=== PATIENT | female | born 1995 | race African-American/Black ===

== ENCOUNTER 2023-04-04 20:53 | Emergency (ER) | payer SELFPAY ==
--- NOTE | ~2023-04-04 | CT_ITS ---
EXAMINATION: CT abdomen pelvis w con DATE: 04/05/2023 02:27 INDICATION: Periumbilical and epigastric abdominal pain. TECHNIQUE: Computed tomography (CT) of the abdomen and pelvis was performed with 100 mL Omnipaque 350 intravenous contrast. Automated exposure control and iterative reconstruction technique were employe d. The dose-length product was 1495.90 mGy-cm. COMPARISON: None. FINDINGS: The visualized portions of the lung bases are clear without pneumonia or pleural effusion. The heart size is normal. No pericardial effusion. The liver is normal. There are gallstones in the g allbladder, which is normal in size. The spleen, pancreas, adrenal glands, and kidneys are normal. Th ere is an umbilical hernia containing fat. The appendix is normal. There are no dilated loops of brina l. There are no pathologically enlarged lymph nodes. There is no free intraperitoneal fluid. There ar e small foci of gas in the subcutaneous fat in left flank. There is mild lumbar spondylosis. IMPRESSION: 1. Umbilical hernia containing fat. 2. Small foci of gas in the subcutaneous fat in left flank of uncertain clinical significance. Correl ate with physical exam for evidence of cellulitis. 3. Cholelithiasis. Reviewed, dictated and finalized at location E. IMPRESSION: 1. Umbilical hernia containing fat. 2. Small foci of gas in the subcutaneous fat in left flank of uncertain clinica l significance. Correlate with physical exam for evidence of cellulitis. 3. Cholelithiasis.
[2023-04-04 21:16] VITALS: BP 107/89; PULSE 79; RESP 18; TEMP 36.1; O2SAT 100
[2023-04-05 00:03] VITALS: BP 124/84; PULSE 79; RESP 18; O2SAT 100
--- NOTE | 2023-04-05 01:13 | ED.ABDPAIN ---
HPI - Abdominal Pain General Chief Complaint: Abdominal Pain Stated Complaint: abdominal pain, vomiting Time Seen by Provider: 04/05/23 01:05 History of Present Illness HPI narrative: 28-year-old female reports for evaluation for abdominal pain that started 6 hours prior to arrival. Patient states she was getting off work, and felt a pain in her epigastrium and periumbilical region. Stated the same time, she started developing pain in her low back which gradually got worse. She states the pain escalated to a 10 out of 10 pain and caused her to have 1 episode of emesis. She states the pain was severe for about an hour and then subsided when she got to the emergency department. She is now reporting the pain as a 4 out of 10. She reports 1 episode of nonbloody diarrhea. She has never had pain like this before. Only abdominal surgeries consist of a section 14 months ago. LMP approximately 5 weeks ago. She denies fever, chest pain or shortness of breath, nausea, obstipation, dysuria or hematuria, vaginal bleeding, concern for STDs, vaginal discharge. Review of Systems Review of Systems: CONSTITUTIONAL: Denies fever, chills EYES: Denies visual changes, redness, or discharge. ENT: Denies rhinorrhea, congestion, sore throat, or otalgia. CARDIOVASCULAR: Denies chest pain, palpitations, or edema. RESPIRATORY: Denies cough or dyspnea. GASTROINTESTINAL: See HPI GENITOURINARY: Denies dysuria or hematuria. SKIN: Denies rash or itching. MUSCULOSKELETAL: See HPI NEUROLOGIC: Denies headache, numbness, dizziness, or weakness. PSYCHIATRIC: Denies anxiety or depression. Exam Narrative: GENERAL: Well-appearing, in no acute distress. Patient resting comfortably in exam bed. She is pleasant and conversational. HEAD: Normocephalic EYES: PERRLA ENT: Nares clear. Mucous membranes moist. Oropharynx without tonsillar hypertrophy exudate or other lesions. NECK: Supple. CHEST: No respiratory distress. Clear to auscultation, no adventitious breath sounds. HEART: Regular rate and rhythm. No murmur heard. Normal peripheral pulses. ABDOMEN: Normal active bowel sounds. Abdomen soft with tenderness in the periumbilical region with guarding. Negative Swain's. No overlying skin changes. No CVA tenderness. Negative heeltap. EXTREMITIES: Normal range of motion. No edema. SKIN: Warm, dry, no rash. NEURO: No focal deficits. Alert and oriented x3. PSYCH: Normal mood and affect. Course Vital Signs Vital signs: Vital Signs Temperature 96.9 F L 04/04/23 21:16 Pulse Rate 79 04/04/23 21:16 Respiratory Rate 18 04/04/23 21:16 Blood Pressure 107/89 04/04/23 21:16 Pulse Oximetry 100 04/04/23 21:16 Oxygen Delivery Room Air 04/04/23 21:16 Temperature 96.9 F L 04/04/23 21:16 Pulse Rate 72 04/05/23 01:38 Respiratory Rate 15 04/05/23 01:38 Blood Pressure 108/68 04/05/23 01:38 Pulse Oximetry 100 04/05/23 01:38 Oxygen Delivery Room Air 04/04/23 21:16 MDM - Abdominal Pain MDM Narrative Medical decision making narrative: 28-year-old female reports for evaluation for abdominal pain and back pain x7 hours. See HPI for further history. Vitals are stable, she is afebrile. She is nontoxic and well-appearing on exam. Abdomen is soft with tenderness in the periumbilical region with guarding. No peritoneal signs. CBC significant for no leukocytosis. Hemoglobin 11.4, no prior for comparison. Chemistries largely unremarkable other than AST of 85 and ALT of 50. Bilirubin and alk phos normal. Normal lipase. Urinalysis unremarkable. UPT negative. CT abdomen pelvis shows an umbilical hernia containing fat, small focal site of gas in the subcutaneous fat in the left flank of uncertain clinical significance and cholelithiasis. Upon reevaluation, patient sleeping. She states her pain is significantly improved without any intervention. Labs and imaging discussed with her. There are no overlying skin changes over
[2023-04-05 01:38] VITALS: BP 108/68; PULSE 72; RESP 15; O2SAT 100
[2023-04-05] MEDS: SODIUM CHLORIDE 0.9% IV 1,000 ML 999 ML IV CONT (01:38)
[2023-04-05 01:43] LABS: Appearance Urine Clear (Clear); Basophils Percent Auto 0.3 % (0.2-1.2); Bilirubin Urine Negative (Negative); Blood Urine Negative (Negative); Color Urine Yellow (Yellow); Eosinophils Absolute Auto 0.1 K/mm3 (0-0.3); Eosinophils Percent Auto 0.8 % (0-4.4); Glucose Urine UA Negative (Negative); Hematocrit 34.8 % (37.0-47.0); Hemoglobin 11.4 g/dL (12.0-15.0); Immature Granulocyte Absolute 0.03 K/mm3 (0.00-0.031); Immature Granulocyte Percent A 0.3 % (0-0.5); Ketones Urine Negative (Negative); Leukocyte Esterase Ur Negative LEU/UL (Negative); Lymphocytes Absolute Auto 2.85 K/mm3 (0.9-3.2); Lymphocytes Percent Auto 31.9 % (18.3-44.2); Mean Corpuscular HGB Conc 32.8 g/dl (32-36); Mean Corpuscular Hemoglobin 30.2 pg (26-34); Mean Corpuscular Volume 92.1 fl (80-100); Mean Platelet Volume 9.9 fl (7.4-10.4); Monocytes Absolute Auto 0.5 K/mm3 (0.1-0.6); Monocytes Percent Auto 5.9 % (2.6-8.5); Neutrophils Absolute Auto 5.4 K/mm3 (1.3-6.7); Neutrophils Percent Auto 60.8 % (45.5-73.1); Nitrate Urine Negative (Negative); Platelet Count Result 151 k/mm3 (150-375); Protein Urine Negative (Negative); Red Blood Count 3.78 M/mm3 (4.2-5.4); Red Cell Distribution Width 12.7 % (11.5-14.5); Specific Grav Ur 1.017 (1.001-1.035); Urobilinogen Urine 0.2 mg/dL (<2.0); White Blood Count 8.9 K/mm3 (4.5-10.0)
[2023-04-05 01:53] LABS: Alanine Aminotransferase 50 U/L (6-35); Albumin Level 4.1 g/dL (3.5-5.1); Alkaline Phosphatase 76 U/L (38-126); Anion Gap 6 mmol/L (8-16); Aspartate Amino Transferase 85 U/L (14-36); Bilirubin,Total 0.3 mg/dL (0.2-1.3); Blood Urea Nitrogen 10 mg/dL (7-17); Carbon Dioxide 29 mmol/L (22-30); Chloride 102 mmol/L (98-107); Estimated Glomerular Filt Rate > 60; Glucose 135 mg/dL (65-110); Lipase 253 U/L (23-300); Potassium 3.9 mmol/L (3.4-5.0); Sodium 137 mmol/L (137-145)
[2023-04-05 01:58] LABS: Add Urine Microscopic? NO
[2023-04-05 02:01] LABS: Pregnancy On Board Control Positive; Urine Pregnancy Test Negative
[2023-04-05 04:02] VITALS: BP 116/64; PULSE 74; RESP 15; O2SAT 100
== END 2023-04-05 04:03 | disposition home or self-care (01) ==
PROVIDERS: Emergency Provider Physician Assistant
DX: R10.33 Periumbilical pain (principal); K42.9 Umbilical hernia without obstruction or gangrene; K80.20 Calculus of gallbladder without cholecystitis without obstruction
CPT/HCPCS: 36415; 74177; 80053; 81003; 81025; 83690; 85025; 96360; 99284; J7030; Q9967

== ENCOUNTER 2025-04-26 15:40 | Emergency (ER) | payer OTHER, SELFPAY ==
--- NOTE | 2025-04-26 15:42 | ED_ITS ---
HPI - URI/Sore Throat General Chief Complaint: Upper Respiratory Infection Stated Complaint: Sore throat / Cough Time Seen by Provider: 04/26/25 16:11 Source: patient, RN notes reviewed and old records reviewed Mode of arrival: ambulatory Limitations: no limitations History of Present Illness HPI Narrative: 30-year-old female presents to the [facility] with a sore throat, cough and fell fever since yesterday. Has taken Tylenol. Currently Related Data Allergies Allergy/AdvReac Type Severity Reaction Status Date / Time No Known Allergies Allergy Verified 04/26/25 15:58 Review of Systems Review of Systems: All systems reviewed & are unremarkable except as noted in HPI and below Constitutional: Constitutional: Reports as per HPI, Reports body ache(s), Reports fatigue and Reports fever(s) ENT: Reports as per HPI Cardiovascular: Cardiovascular: Reports no additional cardiovascular complaints, Denies chest pain and Denies dyspnea Respiratory: Respiratory: Reports as per HPI, Denies chest congestion, Reports cough and Denies dyspnea Musculoskeletal: Musculoskeletal: Reports no additional musculoskeletal complaints Integumentary/Breasts: Skin/Breast: Reports system reviewed and no additional complaints, except as docu PMFSH Comments At the time of my signature, I reviewed and agree with the nursing past medical, surgical, social, and family history. There is no relevant family history pertinent to the patient complaint. Exam Const: General: cooperative, healthy appearing, comfortable, no acute distress, well developed, alert and well nourished Nutritional Appearance: well nourished and obese Orientation/consciousness: patient oriented x3 Limitations: no limitations HENMT: Head: normal to inspection Ears: hearing grossly normal bilaterally, external ears normal, TM's normal bilaterally, EAC's normal, mastoids normal and no periauricular adenopathy Mouth: Yes Normal oral and palatal mucosa present, Yes lip normal, Yes tongue normal and Yes moist mucous membranes Throat: uvula midline, abnormal tonsil bilateral erythema and hypertrophy 2+; no exudates and posterior oropharynx abnormal erythema; no exudates Eyes: General: appearance normal, both eyes and all related structures Alignment and Position: alignment normal Neck: Neck: normal visual inspection, full ROM, no lymphadenopathy and no meningeal signs Chest: Chest palpation & inspection: normal inspection of the chest Resp: Effort & Inspection: normal respiratory effort and able to speak in complete sentences Auscultation: clear to auscultation bilaterally, no crackles, no rales, no rhonchi and no wheezes Cardio: Rate: regular rate Skin: General skin exam: normal color and no rashes or lesions noted Neuro: General: patient oriented x3, gait normal, moves all extremities and no meningeal signs Cognition (Neuro): normal cognition Speech: normal speech Gait exam (Neuro): Normal gait present Extrem: General: normal to inspection, full ROM, capillary refill normal and normal gait Psych: Appearance: grossly normal and well kempt Mental Status: mental status grossly normal Speech and movement: Normal speech and movement present and Clear speech present Affect: normal affect Attitude: cooperative Course Course Level of Care: Express Care Visit Vital Signs Vital signs: Vital Signs Temperature 97.2 F L 04/26/25 16:07 Pulse Rate 78 04/26/25 16:07 Respiratory Rate 18 04/26/25 16:07 Blood Pressure 120/53 L 04/26/25 16:07 Pulse Oximetry 100 04/26/25 16:07 Oxygen Delivery Room Air 04/26/25 16:07 Temperature 97.2 F L 04/26/25 16:07 Pulse Rate 78 04/26/25 16:07 Respiratory Rate 18 04/26/25 16:07 Blood Pressure 120/53 L 04/26/25 16:07 Pulse Oximetry 100 04/26/25 16:07 Oxygen Delivery Room Air 04/26/25 16:07 Reviewed MDM - URI/Sore Throat MDM Narrative Medical decision making narrative: Patient sitting comfortably in exam room. Patient is nontoxic, vitals stable. Patient presents with sore throat, cough and feeling feverish since yesterday. Flu COVID is negative Strep test is positive Patient appropriate for outpatient treatment with close follow-up with amoxicillin Discharge instructions reviewed with patient, as well as provided in writing per nursing staff. The instructions also include specific and strict return/GO TO THE ER as well as f/u information. All questions have been answered, and the patient deny any further questions with discharge and discharge plan. Some parts of this dictation were generated by voice recognition software and may contain typographical and/or grammatical inaccuracies. Differential Diagnosis Differential diagnosis: Likely upper respiratory infection, otitis media, sinusitis, viral infection, bronchitis, influenza and pharyngitis Lab Data Labs: Lab Results 04/26/25 04/26/25 Range/Units 16:22 16:34 POC Influenza A Ag Negative (Negative) POC Influenza B Ag Negative (Negative) POC SARS CoV-2 Ag Negative (Negative) POC Grp A Strep Screen Positive (Negative) Reviewed Critical Care Time Critical Care Time Critical Care Time: No Discharge Plan Discharge Clinical Impression: Strep throat Patient Disposition: Home Condition: Stable Instructions: Antibiotic Form, Strep Throat (ED) Additional Instructions: After 24-48 hours on antibiotics, Throw the toothbrush away, start using a new one. Please be sure to wash bed linens especially pillow cases. Repeat once you finish the antibiotics. Do not share drinks. Take Motrin alternating with Tylenol for pain and fever alternating every 4 hours. Increase fluids, avoid caffeine. Give plenty of water, juice, Gatorade, Pedialyte, ice pops in Jell-O Follow up with Primary provider if not getting better this week For new or worsening symptoms go directly to the emergency room Patient Language: Irish Prescriptions: New amoxicillin 875 mg tablet 875 mg PO Q12H Qty: 20 0RF Follow-up/Referrals: UNKNOWN,DOCTOR [Non-Staff] Time of Disposition: 16:41
[2025-04-26 16:07] VITALS: BP 120/53; PULSE 78; RESP 18; TEMP 36.2; O2SAT 100
[2025-04-26 16:23] LABS: EDSTREPNEGPOS1 Positive (Negative)
--- OUTSIDE RECORDS SUMMARY | 2025-04-26 16:26 | XMS_ITS | Clinical Summary ---
Author Organization [facility] at the [facility] Office Building Address [address] [place] [address] Care Team Providers Care Telephone Technician Name Role Phone No, Physician Primary Care Provider [phone] Allergies Active Allergy Reactions Criticality Noted Date Comments Quinine Itching Low 09/22/2024 Medications [id number] 25 mg iron-1 mg -400 mg combo pack Take by mouth Active ibuprofen (ADVIL,MOTRIN) 600 mg tablet Take 1 tablet (600 mg total) by mouth every 6 (six) hours as needed for pain 60 tablet 10/22/2024 Active Active Problems Problem Noted Date Diagnosed Date Class 3 severe obesity due t o excess calories with body mass index (BMI) of 45.0 to 49.9 in adult 12/01/2024 History of section 09/25/2024 Metabolic syndrome X 03/25/2023 Resolved Problems Problem Noted Date Diagnosed Date Resolved Date care following delivery 10/20/2024 12/01/2024 Overview (10/22/2024): 10/20/24, POD #1 (CZ) S/p uncomplicated rLTCS. EBL 450 cc, Hgb 10.7 O+, Rubella immune Vital signs reviewed- wnl Mom and baby doing well Normal exam Bandage c/d/i Ambulating, tolerating PO, not yet voiding (due by 1430) , lochia moderate, pain controlled MOF: MOC: For further discussion. Mood: stable VTE ppx: The patient has the following MAJOR risk factors BMI >/= 40 and the following MINOR risk factors delivery. enoxaparin 40 mg BID ordered for VTE prophylaxis. Dispo: Continue routine postoperative care. 10/21/2024 POD #2 (CZ) EBL 450 cc, Hgb 10.7 > 9.3 O+, Rubella immune Vital signs reviewed- wnl Mom and baby doing well Normal exam Bandage c/d/i Ambulating, tolerating PO, voiding spontaneously , lochia moderate, pain controlled MOF: MOC: For further discussion. Mood: stable VTE ppx: The patient has the following MAJOR risk factors BMI >/= 40 and the following MINOR risk factors delivery. enoxaparin 40 mg BID ordered for VTE prophylaxis. Dispo: patient would like to discharge home tomorrow to be able to move around a little better. Continue routine postoperative care. 10/22/24, POD#3 (JF) S/p uncomplicated rLTCS EBL 450 cc, Hgb 10.7 > 9.3 O+, Rubella immune Vital signs reviewed and normal Ambulating, tolerating PO, voiding spontaneously, lochia moderate, pain controlled MOF: MOC: VTE ppx: The patient has the following MAJOR risk factors BMI >/= 40 and the following MINOR risk factors delivery. enoxaparin 40 mg BID ordered for VTE prophylaxis. Mood: stable Dispo: Discharge today. discharge education provided: reviewed s/s of infection, VTE/DVT, bleeding, pre eclampsia and depression/anxiety. Follow up in 1 wk for post op incision check and 6 wk visit History of delivery 10/07/2024 12/01/2024 Overview (10/22/2024): 10/19/2024, 0720 ([place]ell) Patient with history of one prior LTCS, did not labor, told pelvis too small Has been counseled on TOLAC and she would be open to that if she had labored herself, but she declines IOL again today Counseled on risks of the procedure Repeat CS, being bleeding, infection, damage to surrounding structures, need for additional procedures, need for blood transfusion. O (+) blood type, Hgb 10.7, consents to blood products if needed Reviewed need for 3 grams of ancef given current BMI/weight Gestational thrombocytopenia: plt 147 this AM Planning spinal for anesthesia 40 weeks gestation of 10/07/2024 12/01/2024 Supervision of other normal , antepartum 09/25/2024 12/01/2024 Overview (10/19/2024): Surveillance of EDC by 1st T US O+/I/-/-/HIV RPR NR Genetics: NIPT LR Anatomy w/ MFM: incomplete, AGA (35%), echogenic focus in liver; (06/30) incomplete left hand, persistent echogenic focus in liver S/p counseling with MFM and declined amnio GTT: passed 3 hr 3T labs - see anemia below, HIV/RPR NR Tdap: 08/03 Flu (05/05) GBS: negative Social Barriers: none Mode of feeding: breast Method of contraception: declines at this time Delivery Planning: Scheduled for rLTCS 10/[address] Hung. Pain management: desires epidural Support: Class III Obesity (BMI 47.6): early glucose wnl Weekly testing (08/19) 58%, (09/16) EFW 56% 3T anesthesia consult completed 08/26 Hx C/S x1: did not get to labor - was told by provider in [place] that pelvis was too small. Counseled 08/03. Desires TOLAC. Anemia: Hgb 9.4 > 9.8 > 10.5, continue PO iron Gestational Thrombocytopenia: Plt 145 > 143 > 151 [facility] 20 weeks of gestation 09/22/2024 09/25/2024 Overview (09/22/2024): 09/22/2024 0900 (CZ) 29 yo @ 36w1d who presents to [facility] with painful contractions. Her is complicated by morbid obesity and hx of x1. She desires TOLAC. O+, Rubella Immune Hgb: 10.5 GBS: Collected and in progress. SVE 0.5/25/-3 Patient kept for observation due to late decelerations on monitoring. NST currently reactive BPP performed and 02/25 with LIBRADO stable at 6.9 Plan to discharge patient home with strict return precautions, including contractions, vaginal bleeding, LOF, and decreased movement. Also reviewed Pre-eclampsia warning signs. Next OB and ultrasound in office 09/24 Anemia affecting in third trimester 09/09/1912/01/2024 Severe obesity due to excess calories affecting , antepartum 05/05/2024 12/02/19 25 Immunizations Immunization Administration Dates Next Due Tdap 08/03/2024 Surgical History Surgery Date Site/Laterality Comments SECTION Medical History Medical History Date Comments Polycystic ovary syndrome Family History Medical History Relation Name Comments Diabetes Mother Breast cancer Neg Hx Colon cancer Neg Hx Depression Neg Hx Heart disease Neg Hx Kidney disease Neg Hx Ovarian cancer Neg Hx Uterine cancer Neg Hx Relation Name Status Comments Father Alive Mother Alive Social History Tobacco Use Types Packs/Day Years Used Date Smoking Tobacco: Never Smokeless Tobacco: Never Tobacco Cessation:Counseling Given: Not Answered Social Connection and Isolation Panel Answer Date Recorded In a typical week, how many times do you talk on the phone with family, friends, or neighbors? Three times a week 10/19/2024 How often do you get togethe r with friends or relatives? Never 10/19/2024 How often do you attend chur or anabaptist services? Never 10/19/2024 Do you belong to any clubs o r organizations such as roman catholic groups, unions, fraternal or athletic groups, or school groups? No 10/19/2024 How often do you attend meet ings of the clubs or organizations you belong to? Never 10/19/2024 Are you , , di vorced, , never , or living with a partner? 10/19/2024 Overall Financial Resource Strain (CARDIA) Answe r Date Recorded How hard is it for you to pa y for the very basics like food, housing, medical care, and heating? Patient declined 10/19/2024 Hunger Vital Sign Answer Date Recorded Within the past 12 months, y ou worried that your food would run out before you got the money to buy more. Never true 10/20/19 25 Within the past 12 months, t he food you bought just didn't last and you didn't have money to get more. Never true 10/19/2024 PRAPARE - Transportation Answer Date Re corded In the past 12 months, has l ack of transportation kept you from medical appointments or from getting medications? Patient declined 10/19/2024 In the past 12 months, has l ack of transportation kept you from meetings, work, or from getting things needed for daily living? Patient declined 10/19/2024 [place] Depression Scale Answer Date Recorded [place] Depression Scale Total 4 11/30/2024 The thought of harming myself has occurred to me . Never 11/30/2024 Housing Stability Vital Sign Answer Kareem e Recorded In the last 12 months, was t here a time when you were not able to pay the mortgage or rent on time? No 10/19/2024 Number of Times Moved in the Last Year Not on fi le 10/19/2024 At any time in the past 12 m onths, were you homeless or living in a retirement (including now)? No 10/19/2024 Personal Safety Answer Date Recorded Have you ever been in or are you currently in a harmful physical or emotional relationship or is someone making you feel afraid or unsafe? Denies 10/19/2024 Comments No Sex and Gender Information Value Date Recorded Sex Assigned at Not on file Legal Sex Female 8:57 AM CDT Gender Identity Female 04/21/2024 11:15 AM CDT Sexual Orientation Not on file Obstetrics History Para Term AB IAB SAB Ectopic Multiple Livin g Live Births 2 2 2 0 2 2 Date Outcome GA Total Labor Labor/2nd/3rd Weight Sex Type Anes PTL Guadalupe A1 A5 Name Clin 2021 Term 39w 0d 3.5 kg (7 lb 11.5 oz) F CS-LT ranv Epidur al N Livin g Complications:None Delivery Location:[facility] 2024 Term 40w 0d 0h 01m 0h 01m 3.83 kg (8 lb 7.1 oz) F C-Sec tion Epidur al Livin g 8 [address] [place] abeba Hung, Keri Guerrero MD Complications:None Delivery Location:[facility] Main C ampus (E L AND D PROCEDURE) Comments Menarche: 13 Age at first delivery: 26 Last Filed Vital Signs Vital Sign Reading Time Taken Comments Blood Pressure 114/62 11/30/2024 1:41 PM CDT Pulse 81 10/22/2024 5:13 AM CDT Temperature 36.7 C (98.1 F) 10/22/2024 5:13 AM CDT Respiratory Rate 18 10/22/2024 5:13 AM CDT Oxygen Saturation 96% 10/21/2024 2:30 PM CDT Inhaled Oxygen Concentration - - Weight 129.3 kg (285 lb) 11/30/2024 1:41 PM CDT Height 165.1 cm (5' 5) 11/30/2024 1:41 PM CDT Body Mass Index 47.43 11/30/2024 1:41 PM CDT Plan of Treatment Health Maintenance Due Date Last Done Comments Hepatitis C Screening 1994 Varicella Vaccines (1 of 2 - 13+ 2-dose series) 2007 Hepatitis B Screening 2012 Regular Well Visit/Exam 18-64 2012 HPV Vaccines (1 - 3-dose SCD M series) 2021 Influenza Vaccine (#1) 2025 03/29/2024 Cervical Cancer Screening 11/30/20252024, 11/30/2024 Depression Screening 11/30/2025 11/30/2024 DTaP/Tdap/Td Vaccine (2 - Td or Tdap) 08/03/2034 08/03/2024 Pneumococcal vaccine <65 Aged Out No longer eligible based on patient's age to complete this topic Goals Goal Patient Goal Type Associated Problems Recent Progress Patient-Stated? Author Wellness Care Plan Wellness Tara Tapia video production coordinator Procedure Name Priority Date/Time Associated Diagnosis Comments HIGH RISK HPV DNA DETECTION WITH GENOTYPING Routine 11/30/2024 2:04 PM CDT Encounter for screening for malignant neoplasm of cervix from Last 3 Months or Most Recently Relevant to Health Maintenance Results * High Risk HPV DNA Detection with Genotyping (Molecular component) (11/30/2024 2:04 PM CDT) HPV HR 16 Not Detected Not Detected [facility] Comment:Testing performed by : [facility], [address], [place]., [address] HPV HR 18 Not Detected Not Detected [facility] Comment:Testing performed by : [facility], [address], [place]., [address] HPV HR Non 16/18 Not Detected Not Detected [facility] Comment: Interpretive Data Nucleic acid amplification for detection of high-risk Human Papilloma virus (HPV) is performed by the Ally Claire 6800 HPV test. This assay specifically detects HPV-16 and HPV-18 genotypes. The following HPV genotypes are detected as high-risk HPV: HPV-31, 33, 35, ,39, 45, 51, 52, 56, 58, 59, 66, and 68. This assay has been approved by the [place] Food and Drug Administration for detection of HPV in cervical specimens collected by a physician using an endocervical brush/spatula or cervical broom and placed in the ThinPrep Pap Test PreservCyt collection containers. The performance characteristics of this test have been verified by the [facility]ious [facility] laboratory. Correlate with separately reported cytology results, as applicable. Interpretive data last revised 23 Testing performed by: [facility], [address] [place] [address]., [address] Endocervical 11/30/2024 2:04 PM CDT 12/01/2024 9:20 AM CDT Narrative KATARINA - 12/01/2024 11:53 PM CDT Clinical history and diagnosis->Routine Number of vials->1 Testing type->Screening Last menstrual period (date if known)->Unknown Dianne Hung MD LAB BODY FLUIDS AND STOOLS ORDERABLES Final Result [facility] [address] [facility] Department [place] [address] [facility] from Last 3 Months or Most Recently Relevant to Health Maintenance Additional Health Concerns Active Problems Noted Date Diagnosed Date Wellness 10/22/2024 Insurance [facility] Advance Directives For more information, please contact: [phone] * Full Code (Latest Code Status on File) Date Activated Date Inactivated Comments 10/19/2024 10:40 AM 10/23/2024 12:47 AM * Full Code Date Activated Date Inactivated Comments 10/19/2024 6:29 AM 10/19/2024 10:40 AM Full CPR in c ase of cardiopulmonary arrest * Full Code Date Activated Date Inactivated Comments 09/22/2024 2:37 AM 09/22/2024 2:52 PM Care Teams Telephone Technician Relationship Specialty Start Date End Date No, Physician PCP - General 03/30/24
[2025-04-26 16:36] LABS: EDCOVIDSCREEN Negative (Negative); EDINFLUASCREEN Negative (Negative); EDINFLUBSCREEN Negative (Negative)
== END 2025-04-26 16:48 | disposition home or self-care (01) ==
PROVIDERS: Emergency Provider Nurse Practitioner; PCP Family Medicine
DX: J02.0 Streptococcal pharyngitis (principal); Z20.822 Contact with and (suspected) exposure to COVID-19
CPT/HCPCS: 87426; 87804; 87880; 99213; G0463